=== PATIENT | female | born 1960 | race Caucasian/White ===

== ENCOUNTER → 2019-01-04 | Outpatient (CLI) | payer OTHER ==
[~2019-01-04] MED LIST: ALBU90OI INH; ALPR.5 PO; FAMC500 PO; METO25ER PO; MULVITMIND PO; PARO20 PO; PREG75 PO
== END | disposition home or self-care (01) ==
LOC: LAB SHORT 13:52 → PLD 13:52
DX: D48.5 Neoplasm of uncertain behavior of skin (principal)
CPT/HCPCS: 88305

== ENCOUNTER → 2019-02-27 | Outpatient (CLI) | payer OTHER | END | disposition home or self-care (01) | LOC: LAB SHORT 12:08 → PLD 12:08 | DX: C44.310 Basal cell carcinoma of skin of unspecified parts of face (principal) | CPT/HCPCS: 88305 ==

== ENCOUNTER → 2019-03-09 | Outpatient (CLI) | payer OTHER ==
[2019-03-14 15:18] LABS: HPV 16 Negative (Negative); HPV 18 Negative (Negative); HPV OTHER HR TYPES Negative (Negative)
== END | disposition home or self-care (01) ==
LOC: LAB 19:55 → LAB SHORT 19:55
PROVIDERS: Physician Assistant
DX: Z12.4 Encounter for screening for malignant neoplasm of cervix (principal)
CPT/HCPCS: 87624; G0145

== ENCOUNTER → 2020-01-22 | Outpatient (CLI) | payer OTHER | END | disposition home or self-care (01) | LOC: PLD 12:20 → LAB SHORT 12:20 | DX: D22.5 Melanocytic nevi of trunk (principal) | CPT/HCPCS: 88305 ==

== ENCOUNTER → 2020-01-31 | Outpatient (CLI) | payer OTHER | END | disposition home or self-care (01) | LOC: LAB 15:09 → LAB SHORT 15:09 | DX: D03.59 Melanoma in situ of other part of trunk (principal) | CPT/HCPCS: 88305 ==

== ENCOUNTER → 2020-04-30 | Outpatient (CLI) | payer OTHER | END | disposition home or self-care (01) | LOC: PLD 10:56 → LAB SHORT 10:56 | DX: D22.39 Melanocytic nevi of other parts of face (principal) | CPT/HCPCS: 88305 ==

== ENCOUNTER → 2021-02-16 | Outpatient (CLI) | payer OTHER | END | disposition home or self-care (01) | LOC: LAB SHORT 14:59 → LAB 14:59 | DX: L82.1 Other seborrheic keratosis (principal) | CPT/HCPCS: 88305 ==

== ENCOUNTER 2021-05-25 09:00 | Day surgery (SDC) | payer OTHER ==
[~2021-05-25] VITALS: Ht 165.1 cm; Wt 68.6 kg
== END 2021-05-25 10:45 | disposition home or self-care (01) ==
LOC: ORSCSDS 09:00
PROVIDERS: Student in an Organized Health Care Education/Training Program
PROC: 0DB78ZX Excision of Stomach, Pylorus, Via Natural or Artificial Opening Endoscopic, Diagnostic (ICD-10-PCS; principal; 2021-05-25 10:15)
PROC: 0DB48ZX Excision of Esophagogastric Junction, Via Natural or Artificial Opening Endoscopic, Diagnostic (ICD-10-PCS; principal; 2021-05-25 10:15)
PROC: 0DB98ZX Excision of Duodenum, Via Natural or Artificial Opening Endoscopic, Diagnostic (ICD-10-PCS; principal; 2021-05-25 10:15)
DX: R13.10 Dysphagia, unspecified (principal); K21.9 Gastro-esophageal reflux disease without esophagitis; Z87.891 Personal history of nicotine dependence; E78.5 Hyperlipidemia, unspecified; I10 Essential (primary) hypertension; J44.9 Chronic obstructive pulmonary disease, unspecified; R73.03 Prediabetes; Z79.899 Other long term (current) drug therapy
CPT/HCPCS: 88305; 88342; J2704; J7120

== ENCOUNTER → 2022-10-26 | Outpatient (CLI) | payer OTHER ==
[2022-10-27 07:21] LABS: Stool Occult Bld Immuno 1 Positive (NEGATIVE)
== END | disposition home or self-care (01) ==
LOC: LAB SHORT 11:21 → LAB 11:21
PROVIDERS: Physician Assistant
DX: D50.9 Iron deficiency anemia, unspecified (principal)
CPT/HCPCS: 82274

== ENCOUNTER 2022-12-16 12:22 | Day surgery (SDC) | payer OTHER ==
[~2022-12-16] VITALS: Ht 165.1 cm; Wt 65.3 kg
[2022-12-16] MEDS ORDERED: ALBU2.5V5 (12:53)
[2022-12-16] MEDS ORDERED: Vitamin C100 M1 (12:54)
[2022-12-16] MEDS ORDERED: METF500 (12:54)
[2022-12-16] MEDS ORDERED: ATOR10 (12:54)
[2022-12-16] MEDS ORDERED: FERSU90EL (12:54)
[2022-12-16] MEDS ORDERED: VITAMIN C125 MG (12:54)
[2022-12-16] MEDS ORDERED: NAPR220 (12:55)
[2022-12-16] MEDS ORDERED: PRAV20 (12:55)
[2022-12-16] MEDS ORDERED: OMEP20ER (12:55)
[2022-12-16] MEDS ORDERED: ANORO ELLIPTA1 EACH (12:55)
[2022-12-16] MEDS ORDERED: PARO2SU (12:55)
[2022-12-16 16:22] VITALS: BP 132/62
--- NOTE | 2022-12-16 16:32 | NUR ---
12/16/22 1632 Haylee Cisneros LATE ENTRY RN RECIEVED REPORT FROM [facility].RDS. PT'S VSS. PT COMPLAINED OF PAIN IN THE LOWER ABDOMINAL AREA 4/[address] RN [address] URBAN. DR URBAN ASSESSED THE PT AND ORDERED AN ABDOMINAL AND PELVIS CT WITH CONTRAST STAT. PT WAS TAKEN TO IMAGING VIA WHEELCHAIR. RN STAYED WITH PT UNTIL IMAGING WAS COMPLETED AND BROUGHT PT BACK TO [facility] VIA WHEELCHAIR. PT VOIDED X1 AND STATED HER PAIN WAS "BETTER" 3/10. PT TAKEN TO STEP DOWN ROOM AND ASSISTED INTO A RECLINER WITH WARM BLANKETS. VSS AT THIS TIME. REPORT GIVEN TO ORS.JXP IRRIGATION TECHNICIAN. DAUGHTER AT CHAIRSIDE. DR URBAN CAME TO TALK TO PT AND PT'S FAMILY WITH THE DECISION TO ADMIT PT TO SURGICAL FLOOR FOR OBSERVATION. NURSING COMPENSATION AND BENEFITS ANALYST CALLED TO NOTIFY OF THE IMPENDING ADMIT. DR URBAN ORDERED 1 BAG OF IV ZOSYN. RN SCANNED TO PHARMACY. RN WILL GIVE REPORT TO SURGICAL FLOOR RN. PT TOLERATING PO ICE CHIPS AT THIS TIME.
[2022-12-17] MEDS ORDERED: C COMPLEX1000 M1 PO (06:09)
[2022-12-17] MEDS ORDERED: ANORO ELLIPTA1 EACH INH (06:10)
[2022-12-17] MEDS ORDERED: OMEP20ER PO (06:10)
== END 2022-12-16 16:48 | disposition home or self-care (01) ==
LOC: ORSCSDS 12:22
PROVIDERS: Student in an Organized Health Care Education/Training Program
PROC: 0DB78ZX Excision of Stomach, Pylorus, Via Natural or Artificial Opening Endoscopic, Diagnostic (ICD-10-PCS; principal; 2022-12-16 14:15)
PROC: 0DB58ZX Excision of Esophagus, Via Natural or Artificial Opening Endoscopic, Diagnostic (ICD-10-PCS; principal; 2022-12-16 14:15)
PROC: 0DBL8ZX Excision of Transverse Colon, Via Natural or Artificial Opening Endoscopic, Diagnostic (ICD-10-PCS; principal; 2022-12-16 14:15)
PROC: 0DB98ZX Excision of Duodenum, Via Natural or Artificial Opening Endoscopic, Diagnostic (ICD-10-PCS; principal; 2022-12-16 14:15)
PROC: 0DBP8ZX Excision of Rectum, Via Natural or Artificial Opening Endoscopic, Diagnostic (ICD-10-PCS; principal; 2022-12-16 14:15)
PROC: 0DBH8ZX Excision of Cecum, Via Natural or Artificial Opening Endoscopic, Diagnostic (ICD-10-PCS; principal; 2022-12-16 14:15)
PROC: 0DBK8ZX Excision of Ascending Colon, Via Natural or Artificial Opening Endoscopic, Diagnostic (ICD-10-PCS; principal; 2022-12-16 14:15)
DX: D50.9 Iron deficiency anemia, unspecified (principal); K92.1 Melena; Z86.010 Personal history of colon polyps; D12.3 Benign neoplasm of transverse colon; D12.0 Benign neoplasm of cecum; D12.2 Benign neoplasm of ascending colon; K62.1 Rectal polyp; K55.20 Angiodysplasia of colon without hemorrhage; K64.8 Other hemorrhoids; J45.909 Unspecified asthma, uncomplicated; R73.03 Prediabetes; F17.210 Nicotine dependence, cigarettes, uncomplicated; Z79.84 Long term (current) use of oral hypoglycemic drugs; Z79.899 Other long term (current) drug therapy
CPT/HCPCS: 74177; 82947; 88305; 88313; 88342; J0330; J0461; J2001; J2405; J2543; J2704; J7120; Q9967; Q9968

== ENCOUNTER 2022-12-16 16:36 | Inpatient (IN) | payer OTHER ==
[~2022-12-16] VITALS: Ht 165.1 cm; Wt 56.4 kg
[~2022-12-16 16:36] MED LIST changes: +ALBU2.5V5; +ANORO ELLIPTA1 EACH; +ATOR10; +FERSU90EL; +METF500; +NAPR220; +OMEP20ER; +PARO2SU; +PRAV20; +VITAMIN C125 MG; +Vitamin C100 M1
[2022-12-16 18:22] LABS: BASOPHILS ABSOLUTE AUTO 0.02 K/mm3 (0.00-0.23); BASOPHILS PERCENT AUTO 0 % (0-2); EOSINOPHILS ABSOLUTE AUTO 0.03 K/mm3 (0.00-0.68); EOSINOPHILS PERCENT AUTO 0 % (0-6); Hemoglobin 13.3 g/dL (11.5-16.0); IMMATURE GRAN ABSOLUTE AUTO 0.04 K/mm3 (0.00-0.10); IMMATURE GRAN PERCENT AUTO 0 % (0-1); LYMPHOCYTES ABSOLUTE AUTO 0.95 K/mm3 (0.84-5.20); LYMPHOCYTES PERCENT AUTO 7 % (21-46); MONOCYTES ABSOLUTE AUTO 0.28 K/mm3 (0.16-1.47); MONOCYTES PERCENT AUTO 2 % (4-13); Mean Platelet Volume 9.2 fL (9.1-12.4); NEUTROPHILS ABSOLUTE AUTO 12.47 K/mm3 (1.96-9.15); NEUTROPHILS PERCENT AUTO 91 % (41-73); Platelet Count 222 K/mm3 (150-400); White Blood Cell Count 13.79 K/mm3 (4.00-11.30)
[2022-12-16 18:25] LABS: Hematocrit 40.2 % (33.0-51.0); Mean Corpuscular HGB 30.6 pg (26.0-34.0); Mean Corpuscular HGB Conc 33.1 g/dL (31.5-36.5); Mean Corpuscular Volume 93 fL (80-100); Red Blood Cell Count 4.34 M/mm3 (3.80-5.20)
[2022-12-16 18:35] LABS: Albumin, Blood 3.6 g/dL (3.4-5.0); Albumin/Globulin Ratio 1.1 (0.8-1.8); Bilirubin, Total 0.4 mg/dL (0.1-1.0); Bun/Creatinine Ratio 9.9 (12.0-20.0); Calcium, Blood 8.9 mg/dL (8.5-10.1); Creatinine, Blood 0.71 mg/dL (0.40-1.00); Globulin, Blood 3.2 g/dL (2.2-4.0); Potassium, Blood 3.5 mmol/L (3.5-5.5); Total Protein, Blood 6.8 g/dL (6.4-8.2)
--- NOTE | 2022-12-16 18:46 | NUR ---
SHIFT SUMMARY PT BROUGHT TO FLOOR FROM SURGERY CENTER AFTER PERF DURING COLONSCOPY AND EGD. A&OX4. DAUGHTER CAME TO ROOM WITH PT. AMBULATES INDEPENDENTLY. PT NPO BUT CONSISTENTLY ASKS FOR LIQUIDS. PT HAD DAUGHTER FINISH ADMISSION QUESTIONS BECAUSE SHE WANTED TO SLEEP. PT RESTING IN BED WITH CALL LIGHT WITHIN REACH. WILL REPORT TO NOC NURSE.
[2022-12-16 21:05] VITALS: BP 128/66
[2022-12-17 04:54] VITALS: BP 123/59
[2022-12-17 05:12] LABS: Albumin, Blood 3.3 g/dL (3.4-5.0); Bilirubin, Total 0.5 mg/dL (0.1-1.0); Bun/Creatinine Ratio 10.1 (12.0-20.0); Creatinine, Blood 0.79 mg/dL (0.40-1.00); Globulin, Blood 3.2 g/dL (2.2-4.0); Potassium, Blood 3.1 mmol/L (3.5-5.5); Total Protein, Blood 6.5 g/dL (6.4-8.2)
[2022-12-17] MEDS ORDERED: C COMPLEX1000 M1 PO (06:09)
[2022-12-17] MEDS ORDERED: ANORO ELLIPTA1 EACH INH (06:10)
[2022-12-17] MEDS ORDERED: OMEP20ER PO (06:10)
--- NOTE | 2022-12-17 06:19 | NUR ---
SHIFT SUMMARY: PT ADMITTED FOLLOWING COLONOSCOPY AND EGD ON 12/16/22 WITH A BOWEL PERF. THE PT PAIN WAS WELL MANAGED T/O THE NIGHT. MEDICATED WITH DILAUDID X2. THE PT HAD ONE EPISODE IN WHICH ABD PAIN BECOME VERY PAINFUL, RESPONDED WELL TO MEDICATION. REMAINS NPO AT THIS TIME WITH FLUIDS RUNNING. ABLE TO AMBULATE WELL TO THE BATHROOM. A&0X4. AWAITING CONSULT AND PROVIDER ASSESSMENT. PT RESTING WITH CALL LIGHT IN REACH. WILL GIVE REPORT TO DAY TIME RN.
[2022-12-17 06:24] LABS: BASOPHILS ABSOLUTE AUTO 0.05 K/mm3 (0.00-0.23); BASOPHILS PERCENT AUTO 0 % (0-2); EOSINOPHILS ABSOLUTE AUTO 0.01 K/mm3 (0.00-0.68); EOSINOPHILS PERCENT AUTO 0 % (0-6); Hemoglobin 13.2 g/dL (11.5-16.0); IMMATURE GRAN ABSOLUTE AUTO 0.13 K/mm3 (0.00-0.10); IMMATURE GRAN PERCENT AUTO 1 % (0-1); LYMPHOCYTES ABSOLUTE AUTO 2.22 K/mm3 (0.84-5.20); LYMPHOCYTES PERCENT AUTO 10 % (21-46); MONOCYTES ABSOLUTE AUTO 0.88 K/mm3 (0.16-1.47); MONOCYTES PERCENT AUTO 4 % (4-13); Mean Platelet Volume 9.9 fL (9.1-12.4); NEUTROPHILS ABSOLUTE AUTO 20.09 K/mm3 (1.96-9.15); NEUTROPHILS PERCENT AUTO 86 % (41-73); Platelet Count 230 K/mm3 (150-400); White Blood Cell Count 23.38 K/mm3 (4.00-11.30)
[2022-12-17 06:31] LABS: Hematocrit 39.2 % (33.0-51.0); Mean Corpuscular HGB 30.8 pg (26.0-34.0); Mean Corpuscular HGB Conc 33.7 g/dL (31.5-36.5); Mean Corpuscular Volume 91 fL (80-100); Red Blood Cell Count 4.29 M/mm3 (3.80-5.20)
[2022-12-17 07:07] VITALS: BP 115/54
--- NOTE | 2022-12-17 13:35 | NUR ---
DISCHARGE: DR. MENDOZA IN ROOM AT ABOUT 1250. PT IS AMBULATING, REPORTS MINIMAL PAIN AND ABLE TO TOLERATE CLEAR LIQ. DC ORDERS ENTERED, PACKET PRINTED AND PT EDUCATED. PT VERBAZLIED UNDERSTANDING AND LEFT UNIT ON FOOT WITH DAUGHTER AT 1330
== END 2022-12-17 13:36 | disposition home or self-care (01) | DRG 394 ==
LOC: SURS 17:04
PROVIDERS: ADMIT Student in an Organized Health Care Education/Training Program
DX: K63.1 Perforation of intestine (nontraumatic) (principal); K92.1 Melena; R73.03 Prediabetes; E78.5 Hyperlipidemia, unspecified; K58.9 Irritable bowel syndrome, unspecified; J44.9 Chronic obstructive pulmonary disease, unspecified; I10 Essential (primary) hypertension; K66.8 Other specified disorders of peritoneum; F41.1 Generalized anxiety disorder; K21.9 Gastro-esophageal reflux disease without esophagitis; D50.9 Iron deficiency anemia, unspecified; Z85.820 Personal history of malignant melanoma of skin; Z90.710 Acquired absence of both cervix and uterus; Z90.49 Acquired absence of other specified parts of digestive tract; Z88.8 Allergy status to other drugs, medicaments and biological substances; Y83.8 Other surgical procedures as the cause of abnormal reaction of the patient, or of later complication, without mention of misadventure at the time of the procedure; Z79.899 Other long term (current) drug therapy; Z79.51 Long term (current) use of inhaled steroids; Z86.010 Personal history of colon polyps; D12.3 Benign neoplasm of transverse colon; D12.0 Benign neoplasm of cecum; D12.2 Benign neoplasm of ascending colon; K62.1 Rectal polyp; K55.20 Angiodysplasia of colon without hemorrhage; K64.8 Other hemorrhoids; J45.909 Unspecified asthma, uncomplicated; F17.210 Nicotine dependence, cigarettes, uncomplicated; Z79.84 Long term (current) use of oral hypoglycemic drugs
CPT/HCPCS: 36415; 74177; 80053; 82947; 85025; 88305; 88313; 88342; J0330; J0461; J1170; J2001; J2405; J2543; J2704; J7030; J7120; Q9967; Q9968

== ENCOUNTER 2023-05-11 08:32 | Day surgery (SDC) | payer OTHER ==
[~2023-05-11] VITALS: Ht 157.5 cm; Wt 60.6 kg
[~2023-05-11 08:32] MED LIST changes: +ANORO ELLIPTA1 EACH INH; +C COMPLEX1000 M1 PO; +OMEP20ER PO
--- NOTE | 2023-05-11 13:23 | NUR ---
05/11/23 [id number] Nadine David [facility] 26 TATTOO 7
[2023-05-11 13:42] VITALS: BP 150/61
== END 2023-05-11 13:52 | disposition home or self-care (01) ==
LOC: ORSCSDS 08:32
PROVIDERS: Internal Medicine Gastroenterology
PROC: 0DBK8ZX Excision of Ascending Colon, Via Natural or Artificial Opening Endoscopic, Diagnostic (ICD-10-PCS; principal; 2023-05-11 10:00)
PROC: 0DBM8ZX Excision of Descending Colon, Via Natural or Artificial Opening Endoscopic, Diagnostic (ICD-10-PCS; principal; 2023-05-11 10:00)
PROC: 0DBN8ZX Excision of Sigmoid Colon, Via Natural or Artificial Opening Endoscopic, Diagnostic (ICD-10-PCS; principal; 2023-05-11 10:00)
PROC: 3E0H8GC Introduction of Other Therapeutic Substance into Lower GI, Via Natural or Artificial Opening Endoscopic (ICD-10-PCS; principal; 2023-05-11 10:00)
PROC: 0DBL8ZX Excision of Transverse Colon, Via Natural or Artificial Opening Endoscopic, Diagnostic (ICD-10-PCS; principal; 2023-05-11 10:00)
PROC: 0DBP8ZX Excision of Rectum, Via Natural or Artificial Opening Endoscopic, Diagnostic (ICD-10-PCS; principal; 2023-05-11 10:00)
DX: Z12.11 Encounter for screening for malignant neoplasm of colon (principal); Z86.010 Personal history of colon polyps; D12.3 Benign neoplasm of transverse colon; D12.5 Benign neoplasm of sigmoid colon; D12.2 Benign neoplasm of ascending colon; K63.5 Polyp of colon; K55.20 Angiodysplasia of colon without hemorrhage; K64.8 Other hemorrhoids; R73.03 Prediabetes; F17.210 Nicotine dependence, cigarettes, uncomplicated; J45.909 Unspecified asthma, uncomplicated; Z79.4 Long term (current) use of insulin; Z79.899 Other long term (current) drug therapy
CPT/HCPCS: 82947; 88305; J2704; J7120

== ENCOUNTER 2024-11-21 08:19 | Day surgery (SDC) | payer OTHER ==
[~2024-11-21] VITALS: Ht 165.1 cm; Wt 57.4 kg
[2024-11-21] MEDS ORDERED: propofoL 50 ML IV ONE ×3 (08:23→11:14)
[2024-11-21] MEDS ORDERED: Lactated Ringer's 1,000 ML IV ONE ×3 (08:24→11:07)
[2024-11-21] MEDS ORDERED: ALBU90OI (08:38)
[2024-11-21] MEDS ORDERED: C COMPLEX1000 M1 (08:39)
[2024-11-21] MEDS ORDERED: FERSU300 (08:39)
--- NOTE | 2024-11-21 11:18 | NUR ---
11/21/24 1118 George Panchal 8ML NS INJECTED FOR POLYPECTOMY.
[2024-11-21] MEDS ORDERED: propofoL 0 ML IV ONE (11:31)
[2024-11-21] MEDS ORDERED: Ipratropium/Albuterol SulF 2.5-0.5MG/3 ML Amp ONE (12:08)
--- NOTE | 2024-11-21 12:21 | NUR ---
11/21/24 1221 George Panchal REPORT RECIEVED FROM [facility]. PT GIVEN BREATHING TREATMENT PER ORDERS FROM MD FOR POST-OP WHEEZES.
[2024-11-21 12:36] VITALS: BP 129/61
== END 2024-11-21 12:41 | disposition home or self-care (01) ==
LOC: ORSCSDS 08:19
DX: Z12.11 Encounter for screening for malignant neoplasm of colon (principal); Z86.0101 Personal history of adenomatous and serrated colon polyps; D12.0 Benign neoplasm of cecum; K63.5 Polyp of colon; K62.1 Rectal polyp; K64.8 Other hemorrhoids; K64.4 Residual hemorrhoidal skin tags; Z79.899 Other long term (current) drug therapy; K55.20 Angiodysplasia of colon without hemorrhage; J44.89 Other specified chronic obstructive pulmonary disease; E78.5 Hyperlipidemia, unspecified; F41.1 Generalized anxiety disorder; I10 Essential (primary) hypertension; Z79.84 Long term (current) use of oral hypoglycemic drugs
CPT/HCPCS: 82947; 88305; J2704; J7120